=== PATIENT | female | born 1950 | race Caucasian/White ===

== ENCOUNTER 2022-06-18 10:45 | Inpatient (IN) | payer MEDICARE, SELFPAY ==
[2022-06-18 10:46] VITALS: BP 172/90; PULSE 98; RESP 16; TEMP 36.8; O2SAT 95; BMI 15.0
--- NOTE | 2022-06-18 11:00 | W.ED.FALL ---
HPI - Fall General: Chief Complaint: Fall Stated Complaint: BACK PAIN S/P FALL Time Seen by Provider: 06/18/22 11:00 History of Present Illness: Ms. Nance is a 72-year-old lady with significant past medical history of COPD and continued tobacco abuse presenting to the emergency department due to fall with low back pain. She has been increasingly weak especially over the past month and has had issues ambulating. She got up and had a fall without known specific provoking factors. Since that time has had increased low back pain which is moderate to severe in intensity worse with ambulation and movement. She has a history of COPD and was recently placed on oxygen. Additionally reports a recent prior evaluation for right upper quadrant/chest pain. No other specific changes in health, exacerbating, or alleviating factors identified. She is currently on prednisone and Levaquin for exacerbation of lung disease, additionally takes lisinopril. Onset (ago): hour(s) Fall from: standing Place fall occurred: home Loss of consciousness: None Symptoms prior to fall: none Context: tripped/slipped and other (Worsening generalized weakness) Location of injury: back Severity: moderate Review of Systems General: Reports: 10 or more systems reviewed and unremarkable except in HPI and below PFSH ED PFSH: Medical History Chronic respiratory failure with hypoxia COPD (chronic obstructive pulmonary disease) Hypertension Surgical History History of hip surgery Family History Denies family history of CAD (coronary artery disease) Social History Smoking and tobacco status: current every day smoker Physical Exam Const: COMMON NORMALS: alert GENERAL APPEARANCE: cooperative, frail appearing and appears older than stated age HENMT: COMMON NORMALS: normocephalic and atraumatic HEAD & SCALP: normocephalic and atraumatic OTHER: No hermosillo signs or raccoon eyes. No otorrhea or rhinorrhea. Jaw alignment normal. Dentition baseline. No obvious bony step-offs. No septal hematoma. No evidence of ocular entrapment. Eye: COMMON NORMALS: conjunctivae normal CONJUNCTIVA: Yes conjunctivae normal SCLERA: sclerae normal Neck/C-Spine: COMMON NORMALS: supple GENERAL: Yes trachea midline Resp: COMMON NORMALS: No use of accessory muscles EFFORT & INSPECTION: Yes able to speak in complete sentences and Yes tachypneic AUSCULTATION: diminished lung sounds OTHER: Supplemental oxygen in place Cardio: COMMON NORMALS: regular rate and regular rhythm RATE: regular rate RHYTHM: regular rhythm GI: COMMON NORMALS: Soft to palpation PALPATION: Yes Soft to palpation and No Tenderness to palpation present (GI) Back/Pelvis: LUMBAR SPINE/LOWER BACK: Yes lumbar spinal tenderness Extremity: GENERAL: Yes normal exam except as noted and No edema Neuro: COMMON NORMALS: moves all extremities SENSORIUM/ORIENTATION: Yes alert and No Orientation impaired Psych: COMMON NORMALS: mental status grossly normal and Normal thought process present THOUGHT PROCESS: Normal thought process present Course Vital Signs: Vital signs: Vital Signs Temperature 97.5 F L 06/21/22 03:58 Pulse Rate 112 H 06/21/22 12:12 Respiratory Rate 18 06/21/22 12:12 Blood Pressure 108/65 06/21/22 08:00 Pulse Oximetry 94 06/21/22 12:12 Oxygen Delivery Me thod 06/21/22 08:31 Oxygen Flow Rate 3 06/21/22 08:31 MDM - Fall Medical Decision Making 72-year-old lady presenting with fall and increased weakness. Exam as above. EKG notable for sinus tachycardia, no STEMI. Labs with my leukocytosis, normal hemoglobin. Metabolic panel with evidence of dehydration with hyponatremia and hypochloremia, renal function appears preserved. 2-hour delta troponin is negative. Hematuria present. CT head and cervical spine negative for acute traumatic injury. CT chest abdomen pelvis notable for L1 superior endplate fracture and chronic appearing compression fracture of T6 as well as other incidental nontraumatic findings which were discussed with the patient. Attempted pain control however in discussion with patient and family patient will be unable to perform ADLs and does not have adequate assistance in her living situation. The results of ED evaluation were discussed with the patient including plan for admission due to requirement for level of care not available if discharged to prevent significant worsening/deterioration. Patient agreeable with plan. Discussed with Dr. Flynn of the hospitalist service who was agreeable to admit the patient. Medical Records I reviewed the patient's medical records. Lab Data I reviewed the patient's lab results. : 06/20/22 06:05 06/20/22 03:53 Radiology Impressions Cervical Spine CT 06/18/22 11:11 IMPRESSION: Severe compression fracture of the T6 vertebra is only partially visualized and is of unknown chronicity. Recommend CT scan of the thorax for further evaluation as clinically warranted. Chest/Abdomen/Pelvis CT 06/18/22 11:11 IMPRESSION: 1. Hyperaeration of the right lung with and mild leftward mediastinal shift. Consolidation at the left lung apex is nonspecific and may represent atelectasis and or scarring. Underlying neoplasm and pneumonia are possibilities as well. Please correlate clinically. 2. Moderate compression fracture of the L1 superior endplate has an acute to subacute appearance. 3. Severe chronic appearing compression fracture of the T6 vertebra. 4. There are emphysematous changes in the lungs. 5. There is a small region of consolidation at the posterior aspect of the right lung base. Differential includes scarring, atelectasis, pneumonia and or neoplasm. IMPRESSION: 1. Generalized osteopenia. Moderate compression fracture of the L1 superior endplate has an acute to subacute appearance and is associated with mild prevertebral soft tissue edema. 2. Colonic constipation is present. 3. There are multiple nonobstructing right renal calculi. Mild fullness of the right renal pelvis is of unknown clinical significance. No obstructing ureteral calculi identified. 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 No evidence for large acute ischemic infarction or acute intracranial injury. Laboratory Results WBC 12.6 10^3/uL (4.0-10.0) H 06/18/22 10:52 RBC 4.52 10^6/uL (4.1-5.3) 06/18/22 10:52 Hgb 13.9 g/dL (11.5-15.3) 06/18/22 10:52 Hct 44.7 % (37.0-47.0) 06/18/22 10:52 MCV 98.9 fl (81-99) 06/18/22 10:52 MCH 30.8 pg (28.0-34.0) 06/18/22 10:52 MCHC 31.1 g/dL (30.0-36.0) 06/18/22 10:52 RDW 12.7 % (12.1-15.1) 06/18/22 10:52 Plt Count 328 10^3/cmm (130-400) 06/18/22 10:52 MPV 9.2 fL (7.4-10.4) 06/18/22 10:52 Neut % (Auto) 87.8 % 06/18/22 10:52 Lymph % (Auto) 4.4 % 06/18/22 10:52 [place] % (Auto) 6.7 % 06/18/22 10:52 Eos % (Auto) 0.1 % 06/18/22 10:52 Baso % (Auto) 0.1 % 06/18/22 10:52 Neut # (Auto) 11.09 10^3/uL (1.8-7.7) H 06/18/22 10:52 Lymph # (Auto) 0.6 10^3/uL (0.8-4.8) L 06/18/22 10:52 [place] # (Auto) 0.8 10^3/uL (0.2-0.9) 06/18/22 10:52 Eos # (Auto) 0.0 10^3/uL (0.0-0.8) 06/18/22 10:52 Baso # (Auto) 0.0 10^3/uL (0.0-0.1) 06/18/22 10:52 Nucleated RBC % (auto) 0 % 06/18/22 10:52 Nucleated RBCs # 0.0 /100WBC 06/18/22 10:52 Sodium 133 mmol/L (136-145) L 06/18/22 10:52 Potassium 4.3 mmol/L (3.5-5.1) 06/18/22 10:52 Chloride 95 mmol/L (98-107) L 06/18/22 10:52 Carbon Dioxide 32 mmol/L (22-29) H 06/18/22 10:52 Anion Gap 10.3 (5-19) 06/18/22 10:52 BUN 26 mg/dL (8-23) H 06/18/22 10:52 Creatinine 0.7 mg/dL (0.5-0.9) 06/18/22 10:52 GFR Calculation Not Reportable 06/18/22 10:52 Glucose 107 mg/dL (65-115) 06/18/22 10:52 Calculated Osmolality 281 mOsm/kg (285-295) L 06/18/22 10:52 Calcium 9.3 mg/dL (8.5-10.5) 06/18/22 10:52 Total Bilirubin 0.4 mg/dL (0.15-1.2) 06/18/22 10:52 AST 19 U/L (0-32) 06/18/22 10:52 ALT 14 U/L (0-33) 06/18/22 10:52 Alkaline Phosphatase 104 U/L (35-105) 06/18/22 10:52 Troponin T Baseline 26 ng/L (0-10) H 06/18/22 10:52 Troponin T 120 Minute 22.80 ng/L (0-10) H 06/18/22 13:39 Delta Troponin T -3.20 ABS# (0-10) L 06/18/22 13:39 Total Protein 7.2 g/dL (6.6-8.7) 06/18/22 10:52 Albumin 3.3 g/dL (3.5-5.2) L 06/18/22 10:52 Globulin 3.9 g/dL (1.3-4.6) 06/18/22 10:52 Urine Color Straw (Yellow) 06/18/22 12:40 Urine Color Yellow (Yellow) 06/18/22 12:40 Urine Appearance Clear (CLEAR) 06/18/22 12:40 Urine Appearance Sl hazy (CLEAR) A 06/18/22 12:40 Urine pH 6 (5-7) 06/18/22 12:40 Urine pH 6 (5-7) 06/18/22 12:40 Ur Specific [place] 1.010 (1.005-1.030) 06/18/22 12:40 Ur Specific [place] 1.010 (1.005-1.030) 06/18/22 12:40 Urine Protein Neg (Negative) 06/18/22 12:40 Urine Protein Neg (Negative) 06/18/22 12:40 Urine Glucose (UA) Norm (Normal) 06/18/22 12:40 Urine Glucose (UA) Norm (Normal) 06/18/22 12:40 Urine Ketones Negative (Negative) 06/18/22 12:40 Urine Ketones Negative (Negative) 06/18/22 12:40 Urine Blood 3+ (Negative) H 06/18/22 12:40 Urine Blood 3+ (Negative) H 06/18/22 12:40 Urine Nitrate Negative (Negative) 06/18/22 12:40 Urine Nitrate Negative (Negative) 06/18/22 12:40 Urine Bilirubin Neg (Negative) 06/18/22 12:40 Urine Bilirubin Neg (Negative) 06/18/22 12:40 Urine Urobilinogen Neg mg/dL (Negative) 06/18/22 12:40 Urine Urobilinogen Norm mg/dL (Negative) 06/18/22 12:40 Ur Leukocyte Esterase Negative (Negative) 06/18/22 12:40 Ur Leukocyte Esterase Negative (Negative) 06/18/22 12:40 Urine RBC 25-40 /hpf (0-2) H 06/18/22 12:40 Urine RBC 50-80 /hpf (0-2) H 06/18/22 12:40 Urine WBC 0-4 /hpf (0-5) H 06/18/22 12:40 Urine WBC 0-4 /hpf (0-5) H 06/18/22 12:40 Ur Squamous Epith Cells 0-4 /hpf (0-5) H 06/18/22 12:40 Ur Squamous Epith Cells 0-4 /hpf (0-5) H 06/18/22 12:40 Amorphous Sediment Not Reportable 06/18/22 12:40 Amorphous Sediment Not Reportable 06/18/22 12:40 Urine Bacteria Trace /hpf (NONE) 06/18/22 12:40 Urine Bacteria Trace /hpf (NONE) 06/18/22 12:40 Urine Mucus Trace /hpf 06/18/22 12:40 Discharge Plan Discharge Patient Disposition: Placed in Observation Admit Provider: Anna Flynn Clinical Impression: Fall, Closed compression fracture of L1 vertebra Coding Level of Care Code ED Behavioral Health Rn for Chg Fwd Exam Comprehensive
--- NOTE | 2022-06-18 11:11 | CTR_ITS ---
PROCEDURE INFORMATION: Exam: CT Chest With Contrast; Diagnostic Exam date and time: 06/18/2022 12:21 PM Age: 72 years old Clinical indication: Pain; Other: Low back; Other: Weakness; Additional info: Fall, generalized pain, worse low back pain TECHNIQUE: Imaging protocol: Diagnostic computed tomography of the chest with contrast. Radiation optimization: All CT scans at this facility use at least one of these dose optimization techniques: automated exposure control; mA and/or kV adjustment per patient size (includes targeted exams where dose is matched to clinical indication); or iterative reconstruction. Contrast material: OMNI 350; Contrast volume: 75 ml; Contrast route: INTRAVENOUS (IV); COMPARISON: CT cervical spin wo con* [id number] 06/18/2022 12:14 PM RADIATION DOSE METRICS: Total DLP (mGy-cm): 433.18 FINDINGS: Lungs: There are emphysematous changes in the lungs. Hyper aeration of the right lung with mild leftward mediastinal shift. There is scarring and consolidation at the left lung apex. There is a small region of consolidation at the posterior aspect of the right lung base measuring 2.6 cm in transverse dimension. Pleural spaces: Unremarkable. No pneumothorax. No pleural effusion. Heart: Multivessel atherosclerotic disease which involves the coronary arteries. Lymph nodes: Unremarkable. No enlarged lymph nodes. Vasculature: Unremarkable. No aortic aneurysm. Bones/joints: Generalized osteopenia. There is severe compression fracture of the T6 vertebra which has a chronic appearance. No definite soft tissue changes are seen at this level. There is a moderate compression fracture of the L1 superior endplate with 3.6 mm retropulsion and mild adjacent prevertebral soft tissue edema. This fracture has an acute to subacute appearance. Degenerative changes are present in the visualized spine. Soft tissues: Mild prevertebral soft tissue edema at the L1 level. PROCEDURE INFORMATION: Exam: CT Abdomen And Pelvis With Contrast Exam date and time: 06/18/2022 12:21 PM Age: 72 years old Clinical indication: Pain; Other: Low back; Other: Weakness; Additional info: Fall, generalized pain, worse low back pain TECHNIQUE: Imaging protocol: Computed tomography of the abdomen and pelvis with contrast. Radiation optimization: All CT scans at this facility use at least one of these dose optimization techniques: automated exposure control; mA and/or kV adjustment per patient size (includes targeted exams where dose is matched to clinical indication); or iterative reconstruction. Contrast material: OMNI 350; Contrast volume: 75 ml; Contrast route: INTRAVENOUS (IV); COMPARISON: No relevant prior studies available. RADIATION DOSE METRICS: Total DLP (mGy-cm): 433.18 FINDINGS: Heart: Multivessel atherosclerotic disease which involves the coronary arteries. Liver: Normal. No mass. Gallbladder and bile ducts: Normal. No calcified stones. No ductal dilation. Pancreas: Normal. No ductal dilation. Spleen: Normal. No splenomegaly. Adrenal glands: Normal. No mass. Kidneys and ureters: Multiple nonobstructing right renal calculi. Mild fullness of the right renal pelvis. No obstructing ureteral calculi identified. Stomach and bowel: Colonic constipation is present. Appendix: No evidence of appendicitis. Intraperitoneal space: Unremarkable. No free air. No significant fluid collection. Vasculature: Infrarenal abdominal aorta is ectatic measuring 2.7 cm in AP dimension.Follow-up imaging in 5 years is recommended. Lymph nodes: Unremarkable. No enlarged lymph nodes. Urinary bladder: Unremarkable as visualized. Reproductive: Unremarkable as visualized. Bones/joints: Again seen is the moderate compression fracture of the L1 superior endplate with 3.6 mm retropulsion and mild prevertebral soft tissue edema. This has an acute to subacute appearance. Degenerative changes are present in the visualized spine. Generalized osteopenia. Status post ORIF proximal right femur. Soft tissues: See Bones/joints finding. CT/CT chest abd pel w con* IMPRESSION: 1. Hyperaeration of the right lung with and mild leftward mediastinal shift. Consolidation at the left lung apex is nonspecific and may represent atelectasis and or scarring. Underlying neoplasm and pneumonia are possibilities as well. Please correlate clinically. 2. Moderate compression fracture of the L1 superior endplate has an acute to subacute appearance. 3. Severe chronic appearing compression fracture of the T6 vertebra. 4. There are emphysematous changes in the lungs. 5. There is a small region of consolidation at the posterior aspect of the right lung base. Differential includes scarring, atelectasis, pneumonia and or neoplasm. IMPRESSION: 1. Generalized osteopenia. Moderate compression fracture of the L1 superior endplate has an acute to subacute appearance and is associated with mild prevertebral soft tissue edema. 2. Colonic constipation is present. 3. There are multiple nonobstructing right renal calculi. Mild fullness of the right renal pelvis is of unknown clinical significance. No obstructing ureteral calculi identified.
--- NOTE | 2022-06-18 11:11 | CTR_ITS ---
PROCEDURE INFORMATION: Exam: CT Head Without Contrast Exam date and time: 06/18/2022 12:14 PM Age: 72 years old Clinical indication: Injury or trauma; Fall; Blunt trauma (contusions or hematomas) TECHNIQUE: Imaging protocol: Computed tomography of the head without contrast. Radiation optimization: All CT scans at this facility use at least one of these dose optimization techniques: automated exposure control; mA and/or kV adjustment per patient size (includes targeted exams where dose is matched to clinical indication); or iterative reconstruction. COMPARISON: No relevant prior studies available. RADIATION DOSE METRICS: Total DLP (mGy-cm): 1116.2 FINDINGS: Brain: Calcified plaque is present within the intracranial vasculature. There is diffuse cerebral atrophy present, consistent with this patient's age. Periventricular and subcortical white matter low densities are present which at this age likely represent microvascular ischemic change. There are chronic lacunar infarcts in the basal ganglia, thalami, and internal capsules. 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 No evidence for large acute ischemic infarction. Please note acute ischemia can be occult by head CT. Cerebral ventricles: No ventriculomegaly. Paranasal sinuses: Visualized sinuses are unremarkable. No fluid levels. Mastoid air cells: Visualized mastoid air cells are well aerated. Bones/joints: Unremarkable. No acute fracture. Soft tissues: Unremarkable. 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 No evidence for large acute ischemic infarction or acute intracranial injury.
--- NOTE | 2022-06-18 11:11 | CTR_ITS ---
PROCEDURE INFORMATION: Exam: CT Cervical Spine Without Contrast Exam date and time: 06/18/2022 12:14 PM Age: 72 years old Clinical indication: Injury or trauma; Fall; Blunt trauma TECHNIQUE: Imaging protocol: Computed tomography of the cervical spine without contrast. Radiation optimization: All CT scans at this facility use at least one of these dose optimization techniques: automated exposure control; mA and/or kV adjustment per patient size (includes targeted exams where dose is matched to clinical indication); or iterative reconstruction. COMPARISON: No relevant prior studies available. RADIATION DOSE METRICS: Total DLP (mGy-cm): 158.9 FINDINGS: Bones/joints: Severe compression fracture of the T6 vertebra is only partially visualized and is of unknown chronicity. There are degenerative changes throughout the visualized spine including marginal osteophyte formations, endplate degenerative changes, and facet arthropathy. Multilevel disc space narrowing. There is a broad-based disc osteophyte complex at the C5-C6 level contributing to moderate bilateral neural foraminal narrowing. Slight grade 1 degenerative anterolisthesis of C6 on C7. Slight grade 1 degenerative retrolisthesis of C5 on C6. Lungs: Emphysematous changes at the lung apices. Soft tissues: Unremarkable. CT/CT cervical spin wo con* [id number] IMPRESSION: Severe compression fracture of the T6 vertebra is only partially visualized and is of unknown chronicity. Recommend CT scan of the thorax for further evaluation as clinically warranted.
[2022-06-18 11:34] LABS: Basophils % 0.1 %; Eosinophils % 0.1 %; Hematocrit 44.7 % (37.0-47.0); Hemoglobin 13.9 g/dL (11.5-15.3); Lymphocytes # 0.6 10^3/uL (0.8-4.8); Lymphocytes % 4.4 %; Mean Corpuscular HGB Conc 31.1 g/dL (30.0-36.0); Mean Corpuscular Hemoglobin 30.8 pg (28.0-34.0); Mean Corpuscular Volume 98.9 fl (81-99); Mean Platelet Volume 9.2 fL (7.4-10.4); Monocytes # 0.8 10^3/uL (0.2-0.9); Monocytes % 6.7 %; Neutrophils # 11.09 10^3/uL (1.8-7.7); Neutrophils % 87.8 %; Nucleated Red Blood Cells % 0 %; Platelet Count 328 10^3/cmm (130-400); Red Blood Count 4.52 10^6/uL (4.1-5.3); Red Cell Distribution Width 12.7 % (12.1-15.1); White Blood Count 12.6 10^3/uL (4.0-10.0)
[2022-06-18 11:45] LABS: Alanine Aminotransferase 14 U/L (0-33); Albumin Level 3.3 g/dL (3.5-5.2); Alkaline Phosphatase 104 U/L (35-105); Anion Gap 10.3 (5-19); Aspartate Amino Transferase 19 U/L (0-32); Blood Urea Nitrogen 26 mg/dL (8-23); Calcium 9.3 mg/dL (8.5-10.5); Carbon Dioxide 32 mmol/L (22-29); Chloride 95 mmol/L (98-107); Creatinine Clr Calc Pharmacy 40.3623; Globulin 3.9 g/dL (1.3-4.6); Glucose 107 mg/dL (65-115); Osmolality Calculated 281 mOsm/kg (285-295); Potassium 4.3 mmol/L (3.5-5.1); Sodium 133 mmol/L (136-145); Total Bilirubin 0.4 mg/dL (0.15-1.2); Total Protein 7.2 g/dL (6.6-8.7)
[2022-06-18 11:46] LABS: Troponin(5th) Baseline 26 ng/L (0-10)
[2022-06-18] MEDS: sodium chloride 0.9% 500 ML 999 ML IV (12:02)
[2022-06-18] MEDS: iohexol 350 mg/mL 100 mL Btl IV (12:25)
[2022-06-18 13:41] LABS: Add Urine Microscopic? YES; Bilirubin Urine Neg (Negative); Blood Urine 3+ (Negative); Glucose Urine UA Norm (Normal); Ketones Urine Negative (Negative); Leukocyte Esterase Urine Negative (Negative); Nitrate Urine Negative (Negative); Protein Urine Neg (Negative); Urine Appearance SL Hazy (CLEAR); Urine Color Straw (Yellow); Urobilinogen Urine Norm (Negative); pH Urine 6 (5-7)
[2022-06-18 13:42] LABS: Add Urine Culture? Yes; Bacteria Urine TRACE /hpf; RBC Urine 25-40 /hpf (0-2); Squamous Epithelial Cell Urine 0-4 /hpf (0-5); WBC Urine 0-4 /hpf (0-5)
--- NOTE | 2022-06-18 14:56 | ECG_ITS ---
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 Measurements Intervals [place] Rate: 109 P: 97 DE: 176 QRS: 78 QRSD: 75 T: 72 QT: 312 QTc: 420 Interpretive Statements SINUS TACHYCARDIA POSSIBLE LEFT ATRIAL ENLARGEMENT [-0.1mV P-WAVE IN V1/V2] SEPTAL MYOCARDIAL INFARCTION , OF INDETERMINATE AGE [40+ ms Q WAVE IN V1/V2] No previous ECG available for comparison Electronically Signed On 06-19-2022 10:18:00 CDT by Cain Burns M.D. [id number]
--- NOTE | 2022-06-18 16:12 | PM.HP ---
Providers/Chief Complaint Admitting Physician: Anna Flynn MD Primary Care Provider: Avelino Ruff Chief Complaint: BACK PAIN S/P FALL History of Present Illness Tiffany Nance is a 72 year old female who presented to hospital with chief complaint of recurrent falls at home. Family stating that they are not able to take care of her anymore and requested assisted placement that is why hospitalist service was asked to admit the patient. I spoke with Nico Nance. As per the family she has been falling a lot for last 4 to 5 weeks, she is lethargic, p.o. intake has been poor. Family is concerned that she want people to do well at home that is why she brought to the hospital. Patient is denying chest pain, diarrhea, runny nose runny eyes recent fever, diarrheal episodes. She is able to admit that she uses 2 to 3 L of oxygen at home. Intermittently she uses a walker for ambulation. Review of Systems Const: Reports: chills and body aches Eyes: Denies: change in vision ENMT: Denies: throat pain Card: Denies: chest pain Resp: Reports: dyspnea GI: Denies: abdominal pain : Denies: flank pain Musc: Reports: back pain and extremity pain Skin/Breast: Denies: rash Neuro: Denies: headache(s) Psych: Denies: anxiety Endo: Denies: polyuria Mark/Lymph: Denies: easy bruising All/Imm: Denies: urticaria Medications/Allergies Home Medications Medication Instructions Recorded Confirmed Last Taken Type levofloxacin 750 mg tablet 750 mg PO DAILY 06/18/22 06/18/22 06/18/22 History lisinopril 20 mg tablet 20 mg PO DAILY 06/18/22 06/18/22 06/18/22 History prednisone 20 mg tablet 40 mg PO DAILY 06/18/22 06/18/22 06/17/22 History Allergies Allergy/AdvReac Type Severity Reaction Status Date / Time Penicillins Allergy Unknown Verified 06/18/22 10:52 PFSH Acute PFSH: Medical History Chronic respiratory failure with hypoxia COPD (chronic obstructive pulmonary disease) Hypertension Surgical History History of hip surgery Family History Denies family history of CAD (coronary artery disease) Social History Smoking and tobacco status: current every day smoker Vitals/I&O/Wt Last Vital Signs Temp 98.3 F 06/18/22 10:46 Pulse 98 06/18/22 10:46 Resp 16 06/18/22 10:46 BP 172/90 06/18/22 10:46 Pulse Ox 95 06/18/22 10:46 O2 Del Method 06/18/22 10:46 O2 Flow Rate 2 06/18/22 10:46 Weight last 48 hrs Weight 40.823 kg Physical Exam Narrative: Cachectic, malnourished elderly female Able to answer my question appropriately Fatigued and lethargic Currently in TLSO brace Currently on 3 L No audible stridor or wheezing No resp distress Nonfocal neuro exam Data : 06/19/22 04:58 06/19/22 04:58 A&P Assessment and plan (1) Fall: (2) Closed compression fracture of L1 vertebra: (3) Hypertension: (4) Chronic respiratory failure with hypoxia: Plan Compression fracture Conservative management with TLSO brace as per Dr Chen Family and pt requesting NH placement COPD w/o acute excaerbation End stage copd 3 L oxygen at home Patient is DNR/DNI Jazmyne Nance: [phone] Jason Nance: [phone] Patient will need assisted placement She would benefit from a palliative consult Patient is stating she cannot take acetaminophen however she does not have any valid reason Patient is hypertensive we will optimize her antihypertensive regimen Nonspecific ST depression related to tachyarrhythmia I will give her therapeutic Lovenox and start her on aspirin and metoprolol We will request echo to see wall motion abnormality Patient never complained of any chest pain Goals of care discussed with the patient, she is DNR/DNI, does not want any aggressive intervention, I did offer palliative consult if she would like to talk with our palliative team Attestations Medical Necessity Statement*: Anticipating more than 2 per night for management of compression fracture, generalized weakness and fatigue failure to thrive Time Spent in Patient Care: 40 Coding Level of Care Code Acute Trim Crew Supervisor for Chg Fwd Diagnoses Fall W19.XXXA Closed compression fracture of L1 vertebra S32.010A Hypertension I10 Chronic respiratory failure with hypoxia J96.11
[2022-06-18 16:39] VITALS: BP 180/124; PULSE 122; RESP 17; O2SAT 93
--- NOTE | 2022-06-18 17:11 | ECG_ITS ---
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 Measurements Intervals [place] Rate: 127 P: 95 WA: 135 QRS: 80 QRSD: 86 T: 3 QT: 290 QTc: 422 Interpretive Statements SINUS TACHYCARDIA SEPTAL MYOCARDIAL INFARCTION , OF INDETERMINATE AGE [40+ ms Q WAVE IN V1/V2] ST DEPRESSION, CONSIDER SUBENDOCARDIAL INJURY [0.1+ mV ST DEPRESSION] Compared to ECG 06/18/2022 14:56:33 ST (T wave) deviation now present Myocardial infarct finding still present Electronically Signed On 06-19-2022 10:18:27 CDT by Cain Burns M.D. [id number]
[2022-06-18 17:24] VITALS: BMI 15.0
[2022-06-18 17:34] LABS: Troponin 5 6HR 23.15 ng/L (0-10)
[2022-06-18 17:35] LABS: Troponin 5 6HR Delta -2.85 ng/L (0-12)
[2022-06-18 18:05] LABS: Procalcitonin 0.02 ng/mL (0-0.5)
[2022-06-18 18:15] LABS: Thyroid Stimulating Hormone 0.78 uIU/mL (0.27-4.20)
[2022-06-18 19:44] VITALS: PULSE 114; RESP 16; O2SAT 98
[2022-06-18 20:00] VITALS: BP 175/92; PULSE 115; RESP 17; TEMP 36.6; O2SAT 97
[2022-06-18 20:34] LABS: Urine Color Yellow (Yellow)
[2022-06-18 20:35] LABS: Add Urine Microscopic? YES; Bilirubin Urine Neg (Negative); Blood Urine 3+ (Negative); Glucose Urine UA Norm (Normal); Ketones Urine Negative (Negative); Leukocyte Esterase Urine Negative (Negative); Nitrate Urine Negative (Negative); Protein Urine Neg (Negative); Urine Appearance Clear (CLEAR); Urobilinogen Urine Neg (Negative); pH Urine 6 (5-7)
[2022-06-18 20:38] LABS: Add Urine Culture? Yes; Bacteria Urine TRACE /hpf; Mucus Urine TRACE /hpf; RBC Urine 50-80 /hpf (0-2); Squamous Epithelial Cell Urine 0-4 /hpf (0-5); WBC Urine 0-4 /hpf (0-5)
--- NOTE | 2022-06-18 20:47 | PC.NURSE ---
Pt is extremely agitated at this time and striking out at staff. Pt is currently A&O x 2 at this time. Pt is also using any device near her such as oxygen tubing and call light button to strike staff. Pt assisted to the bathroom and one on one redirection given. Pt placed back in bed per her request and oxygen applied w/permission. Pt referred to physician for review of increased anxiety and agitation. Will await orders.
[2022-06-18] MEDS: haloperidol inj 5 mg/mL INJ 1 mL 2 MG IM (21:10)
--- NOTE | 2022-06-18 21:14 | PC.NURSE ---
NO received and noted for 1) Haldol 2mg IM now x 1, then reassess pt and may repeat x 1 if still agitated in 30 minutes.
[2022-06-18] MEDS: hyDRALAzine 20 mg/mL INJ 1 mL 5 MG IVP (22:50)
[2022-06-18] MEDS: enoxaparin 40 mg/0.4 mL Syringe SUBCUT (22:50)
--- NOTE | 2022-06-18 23:09 | PC.NURSE ---
Previously stated IV from ER was charted as left wrist, but was actually in her hand. Pt pulled out her iv's in her L AC and L hand. 20G IV restarted to left wrist x 1 attempt via aseptic technique, successful and pt tolerated well. IV flushes w/ease and has good blood return present. IV saline locked at this time.
[2022-06-18 23:42] VITALS: BP 93/62; PULSE 119; RESP 22; O2SAT 99
[2022-06-19] VITALS (7 sets, daily range): BP systolic 91–126; BP diastolic 55–80; PULSE 65–117; RESP 15–21; TEMP 36.6–37.1; O2SAT 94–98
--- NOTE | 2022-06-19 01:14 | PC.NURSE ---
Pt received echo at this time, was calm and cooperative. Continues to sleep on left side, denies pain at this time.
[2022-06-19 05:12] LABS: Basophils % 0.1 %; Hematocrit 44.7 % (37.0-47.0); Hemoglobin 13.8 g/dL (11.5-15.3); Lymphocytes # 0.5 10^3/uL (0.8-4.8); Lymphocytes % 3.9 %; Mean Corpuscular HGB Conc 30.9 g/dL (30.0-36.0); Mean Corpuscular Hemoglobin 30.5 pg (28.0-34.0); Mean Corpuscular Volume 98.7 fl (81-99); Mean Platelet Volume 8.7 fL (7.4-10.4); Monocytes # 0.7 10^3/uL (0.2-0.9); Monocytes % 5.9 %; Neutrophils # 10.91 10^3/uL (1.8-7.7); Neutrophils % 89.6 %; Nucleated Red Blood Cells % 0 %; Platelet Count 270 10^3/cmm (130-400); Red Blood Count 4.53 10^6/uL (4.1-5.3); Red Cell Distribution Width 12.5 % (12.1-15.1); White Blood Count 12.2 10^3/uL (4.0-10.0)
[2022-06-19 05:33] LABS: Magnesium 1.9 mg/dL (1.7-2.3)
[2022-06-19 05:35] LABS: Anion Gap 17.1 (5-19); Blood Urea Nitrogen 25 mg/dL (8-23); Calcium 9.1 mg/dL (8.5-10.5); Carbon Dioxide 30 mmol/L (22-29); Chloride 99 mmol/L (98-107); Glucose 89 mg/dL (65-115); Osmolality Calculated 298 mOsm/kg (285-295); Phosphorus 3.8 mg/dL (2.5-4.5); Potassium 4.1 mmol/L (3.5-5.1); Sodium 142 mmol/L (136-145)
[2022-06-19] MEDS: levoFLOXacin 750 mg Tablet PO (10:00)
[2022-06-19] MEDS: pantoprazole DR 40 mg Tablet PO (10:00)
[2022-06-19] MEDS: lactated ringers 500 ML 999 ML IV (10:00)
[2022-06-19] MEDS: sennosides-docusate Tablet 1 TAB PO (10:00)
[2022-06-19] MEDS: aspirin 81 mg EC Tablet PO (10:00)
--- NOTE | 2022-06-19 10:25 | PM.PN ---
Subjective Subjective: Patient was eating breakfast when entered the room Blood pressure was low added bolus and normal saline High blood pressure has improved overnight Cut back on chlorthalidone Continue lisinopril for now Vitals/I&O/Wt Last Vital Signs Temp 98.7 F 06/19/22 04:00 Pulse 108 H 06/19/22 07:35 Resp 15 06/19/22 08:00 BP 100/62 06/19/22 08:00 Pulse Ox 98 06/19/22 07:35 O2 Del Method 06/19/22 07:35 O2 Flow Rate 3 06/19/22 07:35 06/18/22 06/19/22 06/19/22 22:59 06:59 14:59 Intake Total 500 / 500 Balance 500 / 500 Weight last 48 hrs Weight 40.823 kg Weight 40.823 kg Physical Exam Narrative: Patient is awake and alert Nonfocal neuro exam Currently on 2 L Bilateral breath sound without adventitious rhonchi mild crackles at base of the lungs Abdomen soft Lower extremity no edema Shortness chest pain Patient is lethargic Muscle mass loss Data : 06/19/22 04:58 06/19/22 04:58 A&P Assessment and plan (1) Fall: (2) Closed compression fracture of L1 vertebra: (3) Chronic respiratory failure with hypoxia: (4) Hypertension: (5) COPD (chronic obstructive pulmonary disease): Plan Compression fracture with conservative management DVT prophylaxis Lovenox She was given aspirin and therapeutic Lovenox for mild ST depression which is rate related no active chest pain EKG not show wall motion abnormality, I will cut back on her Lovenox to DVT regimen Sinus tachycardia related to dehydration Added bolus and normal saline for now Hypertension: Continue lisinopril and metoprolol DNR/DNI Spoke with her family Awaiting jail placement Will request PT Attestations Medical Necessity Statement*: Awaiting placement Time Spent in Patient Care: 30 Coding Level of Care Code Acute Senior Quality Control Technician for Kylie Fwd Diagnoses Fall W19.XXXA Closed compression fracture of L1 vertebra S32.010A Chronic respiratory failure with hypoxia J96.11 Hypertension I10 COPD (chronic obstructive pulmonary disease) J44.9
[2022-06-19] MEDS: sodium chloride 0.9% 1,000 ML 75 ML IV (12:17)
--- NOTE | 2022-06-19 19:40 | USCV_ITS ---
Tiffany Nance Age: 72 Gender: F : 1950 Exam Date: 06/19/2022 00:45 Ordering Phys: Estrella Jones MD Technologist: Shy Luther Exam Location: [facility] [place] Indication: ST depression BP: 180 / 124 HR: 111 Rhythm: Sinus Technical Quality: Adequate MEASUREMENTS (Male / Female) Normal Values 2D ECHO LV Diastolic Diameter PLAX 2.6 cm 4.2 - 5.9 / 3.9 - 5.3 cm LV Systolic Diameter PLAX 1.9 cm LV Chamber Size 4.0 cm IVS Diastolic Thickness 1.0 cm 0.6 - 1.0 / 0.6 - 0.9 cm IVS Systolic Thickness 1.3 cm LVPW Diastolic Thickness 1.2 cm 0.6 - 1.0 / 0.6 - 0.9 cm LVPW Systolic Thickness 1.3 cm RV Chamber Size 3.3 cm LVOT Diameter 2.0 cm LV Ejection Fraction 2D Teich 52.5 % LV Ejection Fraction MOD 2C 44.4 % LV Ejection Fraction 2C AL 42.6 % LA Diameter 2.5 cm LA Width 2.6 cm LA Height 2.8 cm RA Width 2.9 cm RA Height 2.3 cm Aorta at Sinotubular Diameter 2.9 cm M-MODE Aortic Annulus Diameter 2.7 cm LA Ao Ratio MM 1.1 MV E Point Septal Separation 0.0 cm DOPPLER AV Peak Velocity 553.7 cm/s LVOT Peak Velocity 218.0 cm/s AV Area Cont Eq vti 1.5 cm squared AV Area Cont Eq pk 1.3 cm squared MV Area PHT 4.9 cm squared Mitral E to A Ratio 0.9 MV E' Velocity 50.0 cm/s Mitral E to MV E' Ratio 14.3 Mitral E to LV E' Lateral Ratio 12.9 Mitral E to LV E' Septal Ratio 16.0 TR Peak Velocity 248.1 cm/s TR Peak Gradient 24.6 mmHg TR Mean Velocity 134.4 cm/s TR Mean Gradient 9.3 mmHg TR Velocity Time Integral 45.4 cm TV Peak E Velocity 68.0 cm/s Right Atrial Pressure 3.0 mmHg Pulmonary Artery Systolic Pressu 27.6 mmHg RV Acceleration Time 0.1 s RV Ejection Time 0.3 s RV AcT/ET 0.5 FINDINGS Left Ventricle Normal left ventricular size, systolic function and wall thickness, with no regional wall motion abnormalities. Grade I/IV diastolic dysfunction (abnormal relaxation filling pattern), normal to mildly elevated filling pressures. Left ventricular ejection fraction is estimated at 65 %. Right Ventricle Normal right ventricular size and systolic function. Normal right ventricular systolic pressure. Right Atrium The right atrium is normal in size. Left Atrium The left atrium is normal in size. Mitral Valve Structurally normal mitral valve without significant stenosis or prolapse. There is no mitral regurgitation. Aortic Valve Structurally normal aortic valve without significant sclerosis or stenosis. There is no aortic regurgitation. Tricuspid Valve Tricuspid valve not well visualized. Pulmonic Valve Pulmonic valve not well visualized. Pericardium Normal pericardium without effusion. Aorta Normal ascending aorta dimension. IVC The inferior vena cava appears normal. CONCLUSIONS Normal left ventricular size, systolic function and wall thickness, with no regional wall motion abnormalities. Grade I/IV diastolic dysfunction (abnormal relaxation filling pattern), normal to mildly elevated filling pressures. Left ventricular ejection fraction is estimated at 65 %. There are no prior echocardiogram studies to compare. Dr. Cain Burns MD (Electronically Signed) Final Date: 19 June 2022 09:19 S
--- NOTE | 2022-06-19 22:48 | PC.NURSE ---
Pt removed previous IV, pressure drsg applied. New IV inserted to Left hand x 1 attempt via aseptic technique. Flushes w/ease, good blood return noted. Pt tolerated procedure well.
[2022-06-19] MEDS: enoxaparin 40 mg/0.4 mL Syringe SUBCUT (22:51)
[2022-06-20] VITALS: BP 161/89; PULSE 109; RESP 18; TEMP 36.6; O2SAT 98
--- NOTE | 2022-06-20 02:57 | PC.NURSE ---
Pt pulled out IV to L hand, IV catheter tip intact. Pressure drsg applied, no bleeding noted.22G IV placed to right wrist x 1 attempt, successful. Good blood return noted, flushes w/ease.
[2022-06-20 04:00] VITALS: BP 109/71; PULSE 123; RESP 20; TEMP 36.8; O2SAT 93
[2022-06-20 05:20] LABS: Blood Urea Nitrogen 29 mg/dL (8-23); Calcium 8.7 mg/dL (8.5-10.5); Carbon Dioxide 24 mmol/L (22-29); Chloride 104 mmol/L (98-107); Creatinine Clr Calc Pharmacy 40.3623; Glucose 100 mg/dL (65-115); Osmolality Calculated 294 mOsm/kg (285-295); Sodium 139 mmol/L (136-145)
[2022-06-20 05:21] LABS: Anion Gap 15.6 (5-19)
[2022-06-20 05:22] LABS: Potassium 4.6 mmol/L (3.5-5.1)
--- NOTE | 2022-06-20 05:31 | PC.NURSE ---
Called registration regarding pt ripping up id band. ID band replaced, pt verified.
[2022-06-20 06:16] LABS: Basophils % 0.1 %; Eosinophils % 0.3 %; Hematocrit 39.1 % (37.0-47.0); Hemoglobin 12.2 g/dL (11.5-15.3); Lymphocytes # 0.6 10^3/uL (0.8-4.8); Lymphocytes % 5.4 %; Mean Corpuscular HGB Conc 31.2 g/dL (30.0-36.0); Mean Corpuscular Hemoglobin 31.4 pg (28.0-34.0); Mean Corpuscular Volume 100.5 fl (81-99); Mean Platelet Volume 8.8 fL (7.4-10.4); Monocytes # 0.5 10^3/uL (0.2-0.9); Monocytes % 4.8 %; Neutrophils # 9.93 10^3/uL (1.8-7.7); Nucleated Red Blood Cells % 0 %; Platelet Count 233 10^3/cmm (130-400); Red Blood Count 3.89 10^6/uL (4.1-5.3); Red Cell Distribution Width 12.6 % (12.1-15.1); White Blood Count 11.2 10^3/uL (4.0-10.0)
[2022-06-20 09:03] LABS: D Dimer 2.85 ug/mIFEU (0-0.59)
--- NOTE | 2022-06-20 09:17 | ECG_ITS ---
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 Measurements Intervals [place] Rate: 111 P: 99 VA: 138 QRS: 86 QRSD: 82 T: 83 QT: 294 QTc: 400 Interpretive Statements SINUS TACHYCARDIA WITH OCCASIONAL VENTRICULAR PREMATURE COMPLEXES ANTEROSEPTAL MYOCARDIAL INFARCTION , OF INDETERMINATE AGE [40+ ms Q WAVE IN V1-V4] Compared to ECG 06/18/2022 17:32:39 Ventricular premature complex(es) now present ST (T wave) deviation no longer present Myocardial infarct finding still present Electronically Signed On 06-20-2022 14:53:56 CDT by Cain Burns M.D. [id number]
[2022-06-20] MEDS: pantoprazole DR 40 mg Tablet PO (09:38)
[2022-06-20] MEDS: lactulose oral liq 20 gm/30 mL UDC 10 GM PO (09:38)
[2022-06-20] MEDS: sennosides-docusate Tablet 1 TAB PO (09:38)
[2022-06-20] MEDS: lisinopril 20 mg Tablet PO (09:38)
[2022-06-20] MEDS: metoprolol tartrate 25 mg Tablet 12.5 MG PO (09:40)
[2022-06-20] MEDS: sodium chloride 0.9% 1,000 ML 75 ML IV (09:46)
[2022-06-20 09:47] VITALS: PULSE 112; RESP 17; O2SAT 92
--- NOTE | 2022-06-20 10:28 | P.PN_ITS ---
Subjective Subjective: Patient able to work to some extent with physical therapy She will be able to go home to half-way once gets approval I will get CT chest because her D-dimer is high she has been tachycardic and requiring oxygen Vitals/I&O/Wt Last Vital Signs Temp 98.2 F 06/20/22 04:00 Pulse 112 H 06/20/22 09:47 Resp 17 06/20/22 09:47 BP 109/71 06/20/22 04:00 Pulse Ox 92 06/20/22 09:47 O2 Del Method 06/20/22 09:47 O2 Flow Rate 3 06/20/22 09:47 06/19/22 06/20/22 06/20/22 22:59 06:59 14:59 Intake Total 1400 / 2260 Output Total 0 / 0 Balance 1400 / 2260 Weight last 48 hrs Weight 39.508 kg Weight 40.823 kg Weight 40.823 kg Physical Exam Narrative: Patient is lethargic and fatigued Currently laying in her bed No audible stridor or wheezing Sinus tachycardia Abdomen soft No signs of edema Awake and alert Data : 06/20/22 06:05 06/20/22 03:53 A&P Assessment and plan (1) Fall: (2) Closed compression fracture of L1 vertebra: (3) Hypertension: (4) Chronic respiratory failure with hypoxia: (5) COPD (chronic obstructive pulmonary disease): Plan Concern for PE D-dimer is high Will request CTA Will need half-way placement Family opting for hospice care if she gets worse at the half-way Had a family meeting yesterday They are not able to take care of her at home Continue levofloxacin for now At home she uses 2 to 3 L of oxygen Continue normal saline, hold off on lisinopril for now We will start her on therapeutic Lovenox Attestations Medical Necessity Statement*: Awaiting placement Time Spent in Patient Care: 30 Coding Level of Care Code Acute [employer] Social Worker for Kyile Fwd Diagnoses Fall W19.XXXA Closed compression fracture of L1 vertebra S32.010A Hypertension I10 Chronic respiratory failure with hypoxia J96.11 COPD (chronic obstructive pulmonary disease) J44.9
[2022-06-20] MEDS: levoFLOXacin 750 mg Tablet PO (11:46)
[2022-06-20 12:00] VITALS: BP 166/87; PULSE 107; RESP 15; TEMP 36.4
[2022-06-20 15:47] VITALS: BP 127/82; PULSE 88; RESP 15; TEMP 36.7; O2SAT 98
--- NOTE | 2022-06-20 19:37 | PC.NURSE ---
22G IV started to R FA x 1 attempt via aseptic technique. Good blood return noted, site flushes w/ease. IV fluids restarted per orders at this time.
[2022-06-20 20:00] VITALS: BP 110/69; PULSE 95; RESP 17; TEMP 36.6; O2SAT 99
--- NOTE | 2022-06-20 20:37 | PC.NURSE ---
Pt refused to take Lopressor this PM, stating you're funny . Medication wasted per policy.
[2022-06-20] MEDS: enoxaparin 40 mg/0.4 mL Syringe SUBCUT (22:30)
[2022-06-21] VITALS: BP 132/71; PULSE 96; RESP 16; TEMP 37.6; O2SAT 98
[2022-06-21 00:49] VITALS: BP 132/71; PULSE 96; RESP 16; TEMP 37.6; O2SAT 98
[2022-06-21 03:58] VITALS: BP 110/69; PULSE 106; RESP 28; TEMP 36.4; O2SAT 97
[2022-06-21] MEDS: sodium chloride 0.9% 1,000 ML 75 ML IV (04:28)
--- NOTE | 2022-06-21 04:30 | PC.NURSE ---
Pt toileted at this time. Blood is present in alfonso colored urine. Denies urinary pain.
[2022-06-21 08:00] VITALS: BP 108/65; PULSE 112; RESP 23; O2SAT 94
[2022-06-21 08:31] VITALS: PULSE 112; RESP 18; O2SAT 94
--- NOTE | 2022-06-21 09:14 | PC.SOCIAL ---
IMM Update pg 2 of IMM updated and reviewed w/ patient. Copy provided and Copy dated, initialed and placed in chart.
--- NOTE | 2022-06-21 09:45 | P.DS_ITS ---
Discharge Providers Date of Admission: 06/18/22 15:46 Date of Discharge: June 21, 2022 Attending Provider at Admission: Anna Flynn MD Attending Provider at Discharge: Estrella Jones MD Primary Care Provider: Avelino Ruff Diagnoses at Discharge Discharge Diagnosis (1) Fall: Status: Acute (2) Closed compression fracture of L1 vertebra: Status: Acute (3) Hypertension: Status: Acute (4) Chronic respiratory failure with hypoxia: Status: Acute (5) COPD (chronic obstructive pulmonary disease): Status: Acute Reason for Visit Reason for Visit: BACK PAIN S/P FALL Hospital Course Hospital Course 72-year-old female who lives with her son presented to the hospital after sustaining recurrent falls, patient was reluctant to come to the hospital however son forced her to come to the ER after sustaining a fall at home. Fall was not witnessed. Patient was diagnosed with compression fracture of her spine, Dr. Chen recommended conservative management with TLSO brace she does have chronic appearing T6 compression fracture, moderate compression of L1, patient is debilitated, she is on mechanical soft diet, experiencing weight loss, poor quality of life, I have asked palliative team to do a consultation, family is opting for hospice care if she gets worse and they might opt for hospice care at the longterm. For now she is going to longterm for short-term rehab however my suspicion is she will get worse and then family will opt for hospice in the next few days. Family meetings were conducted. Son and daughter both work full-time however they are not able to take care of her at home, they want even consider hospice at home because of their work schedule. Even if they opt for hospice care that will be at longterm. I have updated my director of casework services I wanted to get CTA because of her tachycardia and hypoxia however patient said she cannot lay flat and refused. My suspicion is still high for underlying PE I will give her Eliquis and low-dose metoprolol D-dimer was 2.8 MPRESSION: 1. Hyperaeration of the right lung with and mild leftward mediastinal shift. Consolidation at the left lung apex is nonspecific and may represent atelectasis and or scarring. Underlying neoplasm and pneumonia are possibilities as well. Please correlate clinically. 2. Moderate compression fracture of the L1 superior endplate has an acute to subacute appearance. 3. Severe chronic appearing compression fracture of the T6 vertebra. 4. There are emphysematous changes in the lungs. 5. There is a small region of consolidation at the posterior aspect of the right lung base. Differential includes scarring, atelectasis, pneumonia and or neoplasm. ? ? IMPRESSION: 1. Generalized osteopenia. Moderate compression fracture of the L1 superior endplate has an acute to subacute appearance and is associated with mild prevertebral soft tissue edema. 2. Colonic constipation is present. 3. There are multiple nonobstructing right renal calculi. Mild fullness of the right renal pelvis is of unknown clinical significance. No obstructing ureteral calculi identified. Physical Exam Narrative: Patient is laying in semi-Arshad position she is awake and alert able to communicate Currently on 3 L She is not endorsing active pain S1, S2 sinus tachycardia Clinically dehydrated debilitated Muscle mass loss No signs of cauda equina Soft abdomen Discharge Data Studies Completed and Pending Completed Studies During Hospitalization Category Date Time Status CT cervical spin wo con* [id number] Stat Cat Scan 06/18/22 11:[address] chest abd pel w con* Stat Cat Scan 06/18/22 11:[address] head wo con* [id number] Stat Cat Scan 06/18/22 11:11 Completed CV. echo complete* [id number] Routine Ultrasound 06/19/22 19:40 Completed Pending at discharge Category Date Time Status CT angio chest PE protcl [id number] Routine Cat Scan 06/21/22 08:00 Ordered COVID [SARS Covid-2 Antigen] Routine Lab 06/21/22 09:04 Uncollected Radiology Impressions Cervical Spine CT 06/18/22 11:11 IMPRESSION: Severe compression fracture of the T6 vertebra is only partially visualized and is of unknown chronicity. Recommend CT scan of the thorax for further evaluation as clinically warranted. Chest/Abdomen/Pelvis CT 06/18/22 11:11 IMPRESSION: 1. Hyperaeration of the right lung with and mild leftward mediastinal shift. Consolidation at the left lung apex is nonspecific and may represent atelectasis and or scarring. Underlying neoplasm and pneumonia are possibilities as well. Please correlate clinically. 2. Moderate compression fracture of the L1 superior endplate has an acute to subacute appearance. 3. Severe chronic appearing compression fracture of the T6 vertebra. 4. There are emphysematous changes in the lungs. 5. There is a small region of consolidation at the posterior aspect of the right lung base. Differential includes scarring, atelectasis, pneumonia and or neoplasm. IMPRESSION: 1. Generalized osteopenia. Moderate compression fracture of the L1 superior endplate has an acute to subacute appearance and is associated with mild prevertebral soft tissue edema. 2. Colonic constipation is present. 3. There are multiple nonobstructing right renal calculi. Mild fullness of the right renal pelvis is of unknown clinical significance. No obstructing ureteral calculi identified. 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 No evidence for large acute ischemic infarction or acute intracranial injury. Laboratory Results WBC 11.2 10^3/uL (4.0-10.0) H 06/20/22 06:05 Corrected WBC Cancelled 06/20/22 03:53 RBC 3.89 10^6/uL (4.1-5.3) L 06/20/22 06:05 Hgb 12.2 g/dL (11.5-15.3) 06/20/22 06:05 Hct 39.1 % (37.0-47.0) 06/20/22 06:05 MCV 100.5 fl (81-99) H 06/20/22 06:05 MCH 31.4 pg (28.0-34.0) 06/20/22 06:05 MCHC 31.2 g/dL (30.0-36.0) 06/20/22 06:05 RDW 12.6 % (12.1-15.1) 06/20/22 06:05 Plt Count 233 10^3/cmm (130-400) 06/20/22 06:05 MPV 8.8 fL (7.4-10.4) 06/20/22 06:05 Gran % Cancelled 06/20/22 03:53 Neut % (Auto) 89.0 % 06/20/22 06:05 Lymph % (Auto) 5.4 % 06/20/22 06:05 [place] % (Auto) 4.8 % 06/20/22 06:05 Eos % (Auto) 0.3 % 06/20/22 06:05 Baso % (Auto) 0.1 % 06/20/22 06:05 Neut # (Auto) 9.93 10^3/uL (1.8-7.7) H 06/20/22 06:05 Lymph # (Auto) 0.6 10^3/uL (0.8-4.8) L 06/20/22 06:05 [place] # (Auto) 0.5 10^3/uL (0.2-0.9) 06/20/22 06:05 Eos # (Auto) 0.0 10^3/uL (0.0-0.8) 06/20/22 06:05 Baso # (Auto) 0.0 10^3/uL (0.0-0.1) 06/20/22 06:05 Absolute Gran (auto) Cancelled 06/20/22 03:53 Nucleated RBC % (auto) 0 % 06/20/22 06:05 Nucleated RBCs # 0.0 /100WBC 06/20/22 06:05 D-Dimer 2.85 ug/mIFEU (0-0.59) H 06/20/22 08:39 Sodium 139 mmol/L (136-145) 06/20/22 03:53 Potassium 4.6 mmol/L (3.5-5.1) 06/20/22 03:53 Chloride 104 mmol/L (98-107) 06/20/22 03:53 Carbon Dioxide 24 mmol/L (22-29) 06/20/22 03:53 Anion Gap 15.6 (5-19) 06/20/22 03:53 BUN 29 mg/dL (8-23) H 06/20/22 03:53 Creatinine 0.6 mg/dL (0.5-0.9) 06/20/22 03:53 GFR Calculation Not Reportable 06/20/22 03:53 Glucose 100 mg/dL (65-115) 06/20/22 03:53 Calculated Osmolality 294 mOsm/kg (285-295) 06/20/22 03:53 Calcium 8.7 mg/dL (8.5-10.5) 06/20/22 03:53 Phosphorus 3.8 mg/dL (2.5-4.5) 06/19/22 04:58 Magnesium 1.9 mg/dL (1.7-2.3) 06/19/22 04:58 Total Bilirubin 0.4 mg/dL (0.15-1.2) 06/18/22 10:52 AST 19 U/L (0-32) 06/18/22 10:52 ALT 14 U/L (0-33) 06/18/22 10:52 Alkaline Phosphatase 104 U/L (35-105) 06/18/22 10:52 Troponin T Baseline 26 ng/L (0-10) H 06/18/22 10:52 Troponin T 120 Minute 22.80 ng/L (0-10) H 06/18/22 13:39 Delta Troponin T -3.20 ABS# (0-10) L 06/18/22 13:39 Troponin T Hi Sens 6Hr 23.15 ng/L (0-10) H 06/18/22 16:55 Troponin T Hi Sens 6Hr Delta -2.85 ng/L (0-12) L 06/18/22 16:55 Total Protein 7.2 g/dL (6.6-8.7) 06/18/22 10:52 Albumin 3.3 g/dL (3.5-5.2) L 06/18/22 10:52 Globulin 3.9 g/dL (1.3-4.6) 06/18/22 10:52 Procalcitonin 0.02 ng/mL (0-0.5) 06/18/22 16:55 TSH 0.78 uIU/mL (0.27-4.20) 06/18/22 16:55 Urine Color Straw (Yellow) 06/18/22 12:40 Urine Color Yellow (Yellow) 06/18/22 12:40 Urine Appearance Clear (CLEAR) 06/18/22 12:40 Urine Appearance Sl hazy (CLEAR) A 06/18/22 12:40 Urine pH 6 (5-7) 06/18/22 12:40 Urine pH 6 (5-7) 06/18/22 12:40 Ur Specific [place] 1.010 (1.005-1.030) 06/18/22 12:40 Ur Specific [place] 1.010 (1.005-1.030) 06/18/22 12:40 Urine Protein Neg (Negative) 06/18/22 12:40 Urine Protein Neg (Negative) 06/18/22 12:40 Urine Glucose (UA) Norm (Normal) 06/18/22 12:40 Urine Glucose (UA) Norm (Normal) 06/18/22 12:40 Urine Ketones Negative (Negative) 06/18/22 12:40 Urine Ketones Negative (Negative) 06/18/22 12:40 Urine Blood 3+ (Negative) H 06/18/22 12:40 Urine Blood 3+ (Negative) H 06/18/22 12:40 Urine Nitrate Negative (Negative) 06/18/22 12:40 Urine Nitrate Negative (Negative) 06/18/22 12:40 Urine Bilirubin Neg (Negative) 06/18/22 12:40 Urine Bilirubin Neg (Negative) 06/18/22 12:40 Urine Urobilinogen Neg mg/dL (Negative) 06/18/22 12:40 Urine Urobilinogen Norm mg/dL (Negative) 06/18/22 12:40 Ur Leukocyte Esterase Negative (Negative) 06/18/22 12:40 Ur Leukocyte Esterase Negative (Negative) 06/18/22 12:40 Urine RBC 25-40 /hpf (0-2) H 06/18/22 12:40 Urine RBC 50-80 /hpf (0-2) H 06/18/22 12:40 Urine WBC 0-4 /hpf (0-5) H 06/18/22 12:40 Urine WBC 0-4 /hpf (0-5) H 06/18/22 12:40 Ur Squamous Epith Cells 0-4 /hpf (0-5) H 06/18/22 12:40 Ur Squamous Epith Cells 0-4 /hpf (0-5) H 06/18/22 12:40 Amorphous Sediment Not Reportable 06/18/22 12:40 Amorphous Sediment Not Reportable 06/18/22 12:40 Urine Bacteria Trace /hpf (NONE) 06/18/22 12:40 Urine Bacteria Trace /hpf (NONE) 06/18/22 12:40 Urine Mucus Trace /hpf 06/18/22 12:40 Vitals Last Vital Signs Temp 97.5 F L 06/21/22 03:58 Pulse 112 H 06/21/22 08:31 Resp 18 06/21/22 08:31 BP 108/65 06/21/22 08:00 Pulse Ox 94 06/21/22 08:31 O2 Del Method 11/01/22 08:31 O2 Flow Rate 3 06/21/22 08:31 Discharge Plan Discharge Patient Disposition: Xfer SNF Condition: Stable Prescriptions: New oxycodone-acetaminophen 5-325 mg tablet 1 tab PO Q8H PRN (Reason: pain) Qty: 14 0RF Eliquis DVT-PE Treat 30D Start 5 mg (74 tabs) tablets,dose pack 5 mg PO BID Qty: 74 0RF Rx Instructions: Start with 10 mg twice daily for 7 days then 5 mg twice daily sennosides-docusate sodium [Senna-S] 8.6-50 mg tablet 1 tab-cap PO DAILY Qty: 60 0RF metoprolol tartrate 25 mg Tablet 12.5 mg PO BID@0900,2100 Qty: 60 0RF lactulose [Constulose] 10 gram/15 mL solution 15 ml PO DAILY PRN (Reason: constipation) Qty: 237 0RF Continued levofloxacin 750 mg tablet 750 mg PO DAILY Qty: 5 0RF Discontinued lisinopril 20 mg tablet 20 mg PO DAILY prednisone 20 mg tablet 40 mg PO DAILY Discharge Orders: Discharge Order (Routine); Ordered 06/21/22 Ordered By: Estrella Jones Other Ambulatory Orders: DME: Miscellaneous (Order) Location: None Selected Ordered By: Lane Chung Referrals: Avelino Ruff [Primary Care Provider] - Patient Instructions: Pain Management Discharge Attestations Time Spent in Discharge Care*: less than 30 min Quality Metrics Clinical Quality Measures [ No reported AMI, CVA or VTE this stay] Coding Level of Care Code Acute g [facility] note Diagnoses Fall W19.XXXA Closed compression fracture of L1 vertebra S32.010A Hypertension I10 Chronic respiratory failure with hypoxia J96.11 COPD (chronic obstructive pulmonary disease) J44.9
[2022-06-21] MEDS: pantoprazole DR 40 mg Tablet PO (09:47)
[2022-06-21] MEDS: metoprolol tartrate 25 mg Tablet 12.5 MG PO (09:47)
[2022-06-21] MEDS: sennosides-docusate Tablet 1 TAB PO (09:48)
[2022-06-21] MEDS: lactulose oral liq 20 gm/30 mL UDC 10 GM PO (09:48)
[2022-06-21 10:18] LABS: SARS Covid-2 Antigen negative (Negative)
[2022-06-21] MEDS: enoxaparin 40 mg/0.4 mL Syringe SUBCUT (11:13)
[2022-06-21] MEDS: levoFLOXacin 750 mg Tablet PO (11:14)
--- NOTE | 2022-06-21 12:07 | PC.NURSE ---
Called report to Noelle Aden LPN at [facility]. [facility].
[2022-06-21 12:12] VITALS: PULSE 112; RESP 18; O2SAT 94
== END 2022-06-21 11:45 | disposition skilled nursing facility (03) | DRG 552 ==
LOC: ER 15:45 → MEDSURG 17:20
PROVIDERS: Admitting Provider Internal Medicine; Emergency Provider Emergency Medicine; PCP Family Medicine; Visit Provider Internal Medicine
DX: S32.010A Wedge compression fracture of first lumbar vertebra, initial encounter for closed fracture (principal); J96.11 Chronic respiratory failure with hypoxia; W19.XXXA Unspecified fall, initial encounter; J44.9 Chronic obstructive pulmonary disease, unspecified; I10 Essential (primary) hypertension; F17.210 Nicotine dependence, cigarettes, uncomplicated; Z99.81 Dependence on supplemental oxygen; Z66 Do not resuscitate; S22.050D Wedge compression fracture of T5-T6 vertebra, subsequent encounter for fracture with routine healing; X58.XXXD Exposure to other specified factors, subsequent encounter
CPT/HCPCS: 36415; 70450; 71260; 72125; 74177; 80048; 80053; 81001; 83735; 84100; 84145; 84443; 84484; 85025; 85378; 87086; 87426; 93005; 93306; 96372; 97161; 97165; 97530; 97535; 99285; J0360; J1630; J1650; J7030; J7040; J7120; Q9967